=== PATIENT | male | born 1995 | race Caucasian/White ===

== ENCOUNTER 2016-11-02 17:12 | Emergency (ER) | payer OTHER ==
[2016-11-02] MEDS ORDERED: DIPH,PERTUS(ACELL)TETVAC-LF 0.5 ML VIAL IM ONE (18:19)
[2016-11-02] MEDS ORDERED: SULFAMETHOX-TMP 800-160MG 1 EACH TAB PO STA (18:19)
--- NOTE | 2016-11-02 18:30 | ED ---
Skin/Abscess/FB HPI - General Chief complaint: Skin/Abscess/Foreign Body Stated complaint: CYST ON CHEST Time Seen by Provider: 11/02/16 17:32 Source: patient Mode of arrival: ambulatory Limitations: no limitations - History of Present Illness Initial comments: Patient is a 21-year-old white male with medical history significant for Jose syndrome presenting to the emergency department with complaints of infected sebaceous cyst on his chest. Patient states that he's had the sebaceous cyst for approximately one year but it started becoming painful over the last week. Patient denies chills, fevers, nausea, vomiting, shortness of breath, chest pain , abdominal pain, diarrhea or constipation, dysuria, hematuria. No treatment prior to arrival. - Related Data Previous Rx's Medication Instructions Recorded Sulfamethox-Tmp 800-160Mg [Bactrim 1 tab PO Q12HR #20 tab 11/02/16 DS 800-160 mg] Allergies Allergy/AdvReac Type Severity Reaction Status Date / Time No Known Allergies Allergy Verified 11/02/16 17:18 Review of Systems ROS Statement: Those systems with pertinent positive or pertinent negative responses have been documented in the HPI. ROS Other: All systems not noted in ROS Statement are negative. Past Medical History Additional Past Medical History / Comment(s): jose syndrome, CVID History of Any Multi-Drug Resistant Organisms: None Reported Additional Past Surgical History / Comment(s): bone marrow biopsy, lymph node removed from neck Past Psychological History: No Psychological Hx Reported Smoking Status: Never smoker Past Alcohol Use History: None Reported Past Drug Use History: None Reported General Exam - General Exam Comments Initial Comments: GENERAL: Pt awake and alert, well-appearing, well-nourished, and in no acute distress. HEAD: Atraumatic, normocephalic. EYES: Pupils equal, round, sclera anicteric, conjunctiva are normal. ENT: Moist mucous membranes. NECK:Supple without lymphadenopathy. LUNGS: Breath sounds clear to auscultation bilaterally. No wheezes, rales, or rhonchi. HEART: Heart S1, S2, no S3 or S4. Regular rate and rhythm. No murmurs, rubs or gallops. ABDOMEN: Soft, nontender, nondistended, normoactive bowel sounds. No guarding, no rebound. No masses or organomegaly appreciated. EXTREMITIES: 2+ peripheral pulses. No edema. No calf tenderness. NEUROLOGICAL: Pt oriented x 3. No focal deficits noted. Strength and sensation grossly intact. PSYCH: Normal mood, normal affect. SKIN: Warm, dry, intact. Infected sebaceous cyst noted to left anterior chest wall with fluctuance and minimal induration. Limitations: no limitations Course Vital Signs 11/02/16 11/02/16 17:13 18:23 Temperature 99.3 F Pulse Rate 79 77 Respiratory 18 20 Rate Blood Pressure 150/76 145/77 O2 Sat by Pulse 98 Oximetry Procedures - Incision & Drainage Consent Obtained: verbal consent Time Out Performed?: No Site: chest Size (cm): 2 Anesthetic Used: lidocaine 1% Amount (mLs): 1 I&D Cleaning Method: Chloroprep, Alcohol Wipe, Iodine Sterile Field Used?: Yes Scalpel Used: #11 Needle Aspiration Performed?: No Irrigation Performed?: Yes I&D Drainage Obtained: Pus Packing: Other (no packing needed) Culture Obtained?: Yes Patient Tolerated Procedure: well, no complications Medical Decision Making - Medical Decision Making Infected sebaceous cyst to anterior left chest wall. I&D performed. Cultures obtained. Patient started on antibiotics. Patient educated on wound care, follow-up, and return parameters. Patient agrees with treatment plan. Patient instructed to follow-up with primary care physician and possible food general manager. Disposition Clinical Impression: Sebaceous cyst Disposition: HOME SELF-CARE Condition: Good Instructions: Abscess Incision and Drainage (ED) Additional Instructions: Continue warm warm packs over incision 3 times daily. Change outer dressing daily depending on amount of drainage from abscess wound. Follow-up with primary care physician as directed. Follow-up with food general manager as needed. Finish oral antibiotics as prescribed. Please return to the emergency department if symptoms do not improve or get worse or are unresponsive to antibiotic therapy after 3 days. Prescriptions: Sulfamethox-Tmp 800-160Mg [Bactrim DS 800-160 mg] 1 tab PO Q12HR #20 tab Referrals: Neo Jeffrey MD [Primary Care Provider] - 1-2 days Time of Disposition: 18:29
[2016-11-02 19:02] VITALS: BP 148/70; PULSE 84; RESP 16; TEMP 99.2
== END 2016-11-02 19:00 | disposition home or self-care (01) ==
LOC: EC 17:12
DX: L72.3 Sebaceous cyst (principal); Z23 Encounter for immunization
CPT/HCPCS: 10060; 87070; 87205; 90471; 90715; 99283

== ENCOUNTER → 2018-09-15 | Outpatient (CLI) | payer OTHER ==
[2018-09-15 13:11] LABS: Basophils % (A) 1 %; Eosinophils # (A) 0.3 k/uL (0-0.7); Eosinophils % (A) 7 %; HCT 50.1 % (39.0-53.0); HGB 16.7 gm/dL (13.0-17.5); Lymphocytes # (A) 1.1 k/uL (1.0-4.8); Lymphocytes % (A) 25 %; MCH 30.6 pg (25.0-35.0); MCHC 33.3 g/dL (31.0-37.0); MCV 91.9 fL (80.0-100.0); Mean Platelet Volume 8.2; Monocytes # (A) 0.2 k/uL (0-1.0); Monocytes % (A) 5 %; Neutrophils # (A) 2.8 k/uL (1.3-7.7); Neutrophils % (A) 60 %; Platelet Count 148 k/uL (150-450); RBC 5.45 m/uL (4.30-5.90); RDW 14.8 % (11.5-15.5); WBC 4.6 k/uL (3.8-10.6)
[2018-09-15 18:56] LABS: T4, Free (Free Thyroxine) 1.3 ng/dL (0.80-1.80)
== END | disposition home or self-care (01) ==
LOC: LABWHC1 12:24
PROVIDERS: ATTEND Pediatrics
DX: L50.9 Urticaria, unspecified (principal); D83.9 Common variable immunodeficiency, unspecified
CPT/HCPCS: 36415; 84439; 84443; 84450; 84460; 85025; 86160; 86376; 86800

== ENCOUNTER → 2024-11-11 | Outpatient (CLI) | payer BC ==
--- NOTE | 2024-11-11 20:05 | CT ---
EXAMINATION TYPE: CT chest w con CT DLP: 601 mGycm, Automated exposure control for dose reduction was used. 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 . Coronal and sagittal reformats reviewed. FINDINGS: LUNGS/ PLEURA: No pleural effusion or pneumothorax. Few scattered patchy groundglass opacities within the medial aspects of the bilateral lower lobes and within the inferior aspects of the lingula and r ight middle lobe. Additional several scattered nodular opacities. Example includes a right lower lobe 9 mm opacity (series 4, image 44). AIRWAY: Patent and unremarkable.. HEART: Size within normal limits. . No pericardial effusion. No significant coronary artery calcifica tions. MEDIASTINUM: Multiple subcentimeter mediastinal lymph nodes. No pathologically enlarged mediastinal o r hilar adenopathy. VASCULATURE: No aortic aneurysm. MUSCULOSKELETAL: No acute osseous abnormalities SOFT TISSUES/LYMPH NODES: Anterior chest wall superficial 1.5 cm cystic lesion overlying the sternum likely representing a sebaceous cyst. Mild bilateral gynecomastia. Enlarged left axillary lymph nodes the largest measuring up to 2.6 cm. Enlarged left retropectoral lymph nodes measuring up to 4.3 cm. LOWER NECK: No significant findings. UPPER ABDOMEN: Enlarged spleen measures 16.1 cm in AP dimension. Multiple prominent and enlarged retr ocaval lymph nodes measuring up to 1.8 cm. IMPRESSION: 1. Scattered bibasilar patchy airspace opacities with additional some diffuse scattered pulmonary nod ular densities throughout the lungs. May represent an atypical pneumonia with infectious/inflammatory pulmonary nodules versus other etiologies. Follow-up CT chest in 3-6 months is recommended according to Fleischner criteria. 2. Enlarged left axillary/retropectoral lymph nodes with additional prominent/enlarged retrocaval lym ph nodes. May be reactive to #1 versus related to reported common variable immunodeficiency versus ot her etiologies. [facility], , 11/11/2024 8:03 PM
== END | disposition home or self-care (01) ==
LOC: RADCTMAIN 16:53
PROVIDERS: ATTEND Pediatrics
DX: D83.9 Common variable immunodeficiency, unspecified (principal); J98.4 Other disorders of lung; R59.9 Enlarged lymph nodes, unspecified
CPT/HCPCS: 71260; Q9967